=== PATIENT | male | born 1990 | race Caucasian/White ===

== ENCOUNTER 2021-07-27 15:46 | Emergency (ER) | payer OTHER ==
[~2021-07-27] VITALS: Ht 165.1 cm; Wt 77.2 kg
[2021-07-27] MEDS ORDERED: SUPER THERAVIT1 EACH PO (16:08)
[2021-07-27 21:02] VITALS: BP 126/69
== END 2021-07-27 21:02 | disposition left against medical advice (07) ==
LOC: EDBD 15:46 → M.ERS 15:46
DX: S60.552A Superficial foreign body of left hand, initial encounter (principal); Z53.21 Procedure and treatment not carried out due to patient leaving prior to being seen by health care provider; W22.8XXA Striking against or struck by other objects, initial encounter; Y93.89 Activity, other specified; Y92.89 Other specified places as the place of occurrence of the external cause; Y99.8 Other external cause status